=== PATIENT | male | born 1955 | race Caucasian/White ===

== ENCOUNTER 2022-06-17 20:33 | Emergency (ER) | payer OTHER ==
[~2022-06-17] VITALS: Ht 165.1 cm; Wt 123.4 kg
[2022-06-17 20:54] VITALS: BP 128/60
[2022-06-17] MEDS ORDERED: ACETAMINOPHEN EXTRA STRENGTH 500 MG TAB ONE (21:03)
[2022-06-17] MEDS ORDERED: ACETAMINOPHEN EXTRA STRENGTH 500 MG TAB PO ONE (21:05)
--- NOTE | 2022-06-17 21:10 | NUR ---
COVID-19 and flu swabs collected and sent to lab.
--- NOTE | 2022-06-17 21:12 | NUR ---
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
--- NOTE | 2022-06-17 21:14 | NUR ---
pt to bed 06.
--- NOTE | 2022-06-17 21:47 | NUR ---
Patient A/Ox4, lying in bed resting comfortably, chest rise and fall symmetrical, no s/s of distress.
[2022-06-17] MEDS ORDERED: IBUP-2213 PO (22:16)
[2022-06-17 22:20] VITALS: BP 128/74
== END 2022-06-17 22:20 | disposition home or self-care (01) ==
LOC: MED 20:33
DX: J10.1 Influenza due to other identified influenza virus with other respiratory manifestations (principal); Z20.822 Contact with and (suspected) exposure to COVID-19; I10 Essential (primary) hypertension; E78.00 Pure hypercholesterolemia, unspecified; Z79.1 Long term (current) use of non-steroidal anti-inflammatories (NSAID)
CPT/HCPCS: 99283